=== PATIENT | female | born 1985 | race Caucasian/White ===

== ENCOUNTER 2024-02-21 10:59 | Emergency (ER) | payer OTHER ==
[~2024-02-21] VITALS: Ht 167.6 cm; Wt 80.0 kg
[2024-02-21 11:01] VITALS: O2SAT 100
[2024-02-21] MEDS ORDERED: METOCLOPRAMIDE HCL 10MG TABLET PO ONE (11:15)
[2024-02-21] MEDS ORDERED: KETOROLAC 30MG/ML VIAL IM ONE (11:15)
[2024-02-21] MEDS ORDERED: ACETAMINOPHEN 325MG TABLET PO ONE (11:15)
[2024-02-21] MEDS ORDERED: NAPR-1486 MT (13:31)
[2024-02-21] MEDS: KETOROLAC 30MG/ML VIAL IM NR (14:07)
[2024-02-21] MEDS: METOCLOPRAMIDE HCL 10MG TABLET PO NR (14:08)
[2024-02-21] MEDS: ACETAMINOPHEN 325MG TABLET PO NR (14:08)
[2024-02-21 15:36] VITALS: BP 129/80; PULSE 70; RESP 18; TEMP 37.00296; O2SAT 100
== END 2024-02-21 15:38 | disposition home or self-care (01) ==
LOC: ER 11:31
DX: G40.909 Epilepsy, unspecified, not intractable, without status epilepticus (principal); F41.9 Anxiety disorder, unspecified; Z79.1 Long term (current) use of non-steroidal anti-inflammatories (NSAID)
CPT/HCPCS: 99285; 70450; 96372; J8597; J1885

== ENCOUNTER 2024-04-28 16:43 | Emergency (ER) | payer OTHER ==
[~2024-04-28] VITALS: Ht 162.6 cm; Wt 93.0 kg
[~2024-04-28 16:43] MED LIST: NAPR-1486 MT
[2024-04-28 17:12] VITALS: BP 125/82; PULSE 70; RESP 16; TEMP 36.9; O2SAT 100
[2024-04-28 18:06] LABS: CLARITY URINE TURBID (CLEAR); COLOR URINE DARK YELLOW (YELLOW); GLUCOSE URINE NEGATIVE (NEGATIVE); KETONES URINE NEGATIVE (NEGATIVE); LEUKOCYTE ESTERASE URINE NEGATIVE (NEGATIVE); NITRITE URINE NEGATIVE (NEGATIVE); OCCULT BLOOD URINE NEGATIVE (NEGATIVE); PROTEIN URINE 1+ (NEGATIVE); SPECIFIC GRAVITY URINE 1.034 (1.005-1.030)
[2024-04-28 18:25] LABS: BASOPHILS % 0.1 % (0.0-2.0); EOSINOPHILS % 0.6 % (0.0-5.0); HEMATOCRIT. 46.1 % (36.0-48.0); LYMPHOCYTES % 8.4 % (20.0-50.0); MEAN CORPUSCULAR HEMOGLOBIN 30.2 pg (28.0-32.0); MEAN CORPUSCULAR HGB CONC 32.7 g/dL (31.0-37.0); MEAN CORPUSCULAR VOLUME 92.4 fL (81.0-99.0); MEAN PLATELET VOLUME 8.7 fl (7.4-10.4); MONOCYTES % 3.9 % (2.0-8.0); PLATELET 264 x1000/uL (130-400); RED BLOOD CELL COUNT 4.99 mill/uL (4.2-5.4); RED CELL DISTRIBUTION WIDTH 14.7 % (11.6-14.6); WHITE BLOOD COUNT 7.5 x1000/uL (4.5-11.0)
[2024-04-28 18:28] LABS: RBC URINE NONE SEEN /hpf (0-2); WBC URINE 0-2 /hpf (0-2)
[2024-04-28 18:29] LABS: AMORPHOUS SEDIMENT URINE 2+ /lpf; BACTERIA URINE TRACE; SQUAMOUS EPITHELIAL CELL URINE FEW /lpf (RARE/1+)
[2024-04-28 18:33] VITALS: TEMP 98.4
[2024-04-28] MEDS: ONDANSETRON 4MG ODT PO ONE (18:33)
[2024-04-28] MEDS: ACETAMINOPHEN 325MG TABLET PO ONE (18:33)
[2024-04-28 18:34] LABS: CHLORIDE 107 mEq/L (98-107); POTASSIUM 3.8 mEq/L (3.5-5.1); SODIUM 142 mEq/L (136-145)
[2024-04-28 18:35] LABS: CALCIUM 9.1 mg/dL (8.7-10.4); CARBON DIOXIDE 26 mEq/L (21-32)
[2024-04-28 18:40] LABS: CREATININE 0.7 mg/dL (0.6-1.0); GLUCOSE 118 mg/dL (70-105)
[2024-04-28 18:41] LABS: UREA NITROGEN BLOOD 11 mg/dL (9-23)
[2024-04-28 18:42] LABS: ALANINE AMINOTRANSFERASE 11 IU/L (10-49); ALBUMIN 4.5 g/dL (3.2-4.8); ASPARTATE AMINOTRANSFERASE 16 IU/L (<34); BILIRUBIN DIRECT 0.2 mg/dL (<=3.0)
[2024-04-28 18:43] LABS: BILIRUBIN TOTAL 0.8 mg/dL (0.1-1.0); PROTEIN TOTAL 7.3 g/dL (6.0-8.3)
[2024-04-28 18:59] LABS: HCG SCREEN NEGATIVE
[2024-04-28] MEDS ORDERED: ONDA-239 PO (20:11)
== END 2024-04-28 20:35 | disposition home or self-care (01) ==
LOC: ER 16:43
DX: K21.9 Gastro-esophageal reflux disease without esophagitis (principal); F41.9 Anxiety disorder, unspecified; Z90.49 Acquired absence of other specified parts of digestive tract; Z98.890 Other specified postprocedural states
CPT/HCPCS: 99284; 76705; 80076; 80048; 81003; 81025; 84703; 83690; 85025; 36415; Q0162